=== PATIENT | male | born 1975 | race Hispanic/Latino ===

== ENCOUNTER → 2020-01-15 | Day surgery (SDC) | payer OTHER ==
[2020-01-12 11:45] LABS: BASOPHILS % 0.4 % (0.0-1.0); EOSINOPHILS # (AUTO) 0.1 (0.0-0.4); EOSINOPHILS % 2.1 % (0.0-6.0); HEMATOCRIT 51.3 % (38.2-49.6); HEMOGLOBIN 16.7 g/dL (14.0-18.0); LYMPHOCYTES # (AUTO) 1.5 (1.0-3.2); LYMPHOCYTES % 27.3 % (18.0-39.1); MEAN CORPUSCULAR HEMOGLOBIN 29.1 pg (28-32); MEAN CORPUSCULAR HGB CONC 32.6 g/dL (31-35); MEAN CORPUSCULAR VOLUME 89.5 fL (81-99); MONOCYTES # (AUTO) 0.7 (0.2-0.8); MONOCYTES % 12.6 % (4.4-11.3); NEUTROPHILS # (AUTO) 3.1 (2.1-6.9); NEUTROPHILS % 57.4 % (38.7-80.0); PLATELET COUNT 262 x10e3/uL (140-360); RED BLOOD COUNT 5.73 x10e6/uL (4.3-5.7); RED CELL DISTRIBUTION WIDTH 12.6 % (11.7-14.4)
--- NOTE | 2020-01-12 12:14 | Diagnostic Imaging Report ---
EXAM: CHEST 2 VIEWS DATE: 01/12/2020 11:37 AM INDICATION: Preoperative evaluation, renal calculus COMPARISON: None FINDINGS: The trachea is midline. The lungs are symmetrically expanded without evidence for large focal consolidation, pneumothorax, or significant pleural effusion. The cardiomediastinal silhouette and pulmonary vasculature are within normal limits. No acute osseous abnormality is identified. The surrounding soft tissues are unremarkable. IMPRESSION: No acute cardiopulmonary process identified. Signed by: Dr. Zac Aguiar MD on 01/12/2020 12:11 PM
[2020-01-12 12:32] LABS: ANION GAP 10.7 mmol/L (8-16); BLOOD UREA NITROGEN 8 mg/dL (7-26); BUN/CREATININE RATIO 10 (6-25); CALCIUM 8.6 mg/dL (8.4-10.2); CARBON DIOXIDE 28 mmol/L (22-29); CHLORIDE 104 mmol/L (98-107); EST GLOMERULAR FILTRATION RATE > 60 ML/MIN (60-); GLUCOSE 91 mg/dL (74-118); POTASSIUM 3.7 mmol/L (3.5-5.1); SODIUM 139 mmol/L (136-145)
[~2020-01-15] MED LIST: AMLODIPINE BESYL5 MG PO; CEFTRIAXONE SOD 1 GM/NS 50 ML 50 ML IV ONE; CYMBALTA30 MG PO; DEXAMETHASONE SOD PHOS INJ 4 MG/ML VIAL ONE; FENTANYL CITRATE/PF 100MCG/2 ML INJ ONE; FLOMAX0.4 MG PO; FLUOXETINE HCL20 MG PO; IOPAMIDOL 300MG/ML 50ML INFUS..BTL IV ONE; LIDOCAINE HCL 2% LOCAL INJ 5 ML SDV VIAL INJ ONE; LOSARTAN POTASS25 MG PO; MIDAZOLAM HCL 2 MG/2 ML VIAL ONE; NORCO 7.5-3251 EACH PO; ONDANSETRON HCL INJ 2MG/ML 2ML 2 MG/ML VIAL ONE; PROPOFOL IV EMULSION 10 MG/ML 20 ML VIAL ONE; SEVOFLURANE INHAL SOLN 250 ML PEN BTL ONE; SULFASALAZINE500 MG PO; ULTRAM50 MG PO
--- OUTSIDE RECORDS SUMMARY | 2020-01-15 06:13 | XMS REPORT ---
Author Author [facility] t Organization [facility] Address [address] [place] [address] [place] [id number] Phone Unavailable Care Team Providers Care Staff Research Associate Name Role Phone Crystal DSOUZA Attlurdes Unavailable Problems This patient has no known problems. Allergies, Adverse Reactions, Alerts This patient has no known allergies or adverse reactions. Medications This patient has no known medications. Procedures This patient has no known procedures. Results Test Description Test Time Test Comments Results Result Comments Source CHEST 2 VIEWS 2020-01-12 12:10:00 [place] [id number] Patient Name: LALITHA MCDONALD MR #: [id number] : 1975 Age/Sex: 44/M Req #: [id number] Adm Physician: Ordered by: NARESH DSOUZA MD Report #: [id number] Location: OR Room/Bed: Procedure: [id number] DX/CHEST 2 VIEWS Exam Date: 01/12/20 Exam Time: 1137 REPORT STATUS: Signed EXAM: CHEST 2 VIEWS DATE: 01/12/2020 11:37 AM INDICATION: Preoperative evaluation, renal calculus COMPARISON: None FINDINGS: The trachea is midline. The lungs are symmetrically expanded without evidence for large focal consolidation, pne umothorax, or significant pleural effusion. The cardiomediastinal silhouette and pulmonary vasculature are within normal limits. No acute osseous abnormality is identified. The surrounding soft tissues are unremarkable. IMPRESSION: No acute cardiopulmonary process identified. Signed by: Dr. Zac Aguiar MD on 01/12/2020 12:11 PM Dictated By: ZAC AGUIAR MD 1211 Transcribed By: BEATRIZ on 01/12/201210 COPY TO: NARESH DSOUZA MD
[2020-01-15 09:30] VITALS: BP 131/85
--- NOTE | 2020-01-21 13:19 | Operative Report ---
DATE OF PROCEDURE: 01/15/2020 SURGEON: Jourdan Mobley MD PREOPERATIVE DIAGNOSIS: Right proximal ureteral stone. POSTOPERATIVE DIAGNOSIS: Right proximal ureteral stone. OPERATIVE PROCEDURE PERFORMED: Extracorporal Shock Wave Lithotripsy. ANESTHESIA: General. ESTIMATED BLOOD LOSS: Minimal. INDICATIONS: Mr. Manny Meléndez is a 45-year-old gentleman who presented with a 6-7 mm right mid ureteral stone. PROCEDURE: He was brought into the operating room and after general anesthesia was prepped and draped in the normal fashion. The stone was localized by flouroscopy and shock pulses focused on this location. The patient received 2000 shocks, after which the stone was noted to be destroyed. Anesthesia was reversed and he was taken to the PACU in good condition. Jourdan Mobley MD HLW/MODL /[id number] MTDD
== END | disposition home or self-care (01) ==
LOC: OR 06:11
PROVIDERS: ATTEND Urology
DX: N20.1 Calculus of ureter (principal); I10 Essential (primary) hypertension; Z88.0 Allergy status to penicillin; Z01.810 Encounter for preprocedural cardiovascular examination; Z01.812 Encounter for preprocedural laboratory examination; Z01.818 Encounter for other preprocedural examination; Z11.59 Encounter for screening for other viral diseases; Z68.31 Body mass index [BMI] 31.0-31.9, adult
CPT/HCPCS: 36415; 50590; 71046; 80048; 85025; 87635; 93005; J0696; J1100; J2001; J2250; J2405; J2704; J3010